=== PATIENT | male | born 1950 | race Caucasian/White ===

== ENCOUNTER 2017-07-07 07:40 | Emergency (ER) | payer BC ==
[2017-07-07 07:46] VITALS: BP 147/85
--- NOTE | 2017-07-07 08:15 | UC ---
Respiratory Complaint HPI - HPI Summary HPI Summary: 67yo WM c/o nasal congestion, and non-productive cough x 2 days - History of Current Complaint Chief Complaint: UCRespiratory Stated Complaint: URI Time Seen by Provider: 07/07/17 07:53 Hx Obtained From: Patient Onset/Duration: Gradual Onset Severity Initially: Mild Character: Cough: Nonproductive Associated Signs And Symptoms: Negative: Dyspnea, Fever, Chills, Wheezing - Allergies/Home Medications Allergies/Adverse Reactions: Allergies Allergy/AdvReac Type Severity Reaction Status Date / Time Erythromycin Allergy Intermediate Stomach Verified 07/07/17 07:48 Cramps Atorvastatin [From Lipitor] AdvReac Unknown Verified 07/07/17 07:48 Reaction Details Home Medications: Home Medications Dextromethorphan-Guaifenesin [Guaifenesin/Dextromethorp 20-400 mg] 1 tab PO Q6HR PRN 07/07/17 [History Confirmed 07/07/17] PMH/Surg Hx/FS Hx/Imm Hx - Surgical History Surgical History: Yes Surgery Procedure, Year, and Place: Bilateral Injunial Hernia repair; Right knee surgery - Social History Alcohol Use: Daily Alcohol Amount: 1-2 glass wine Substance Use Type: None Smoking Status (MU): Never Smoked Tobacco - Immunization History Most Recent Influenza Vaccination: 06/2017 Review of Systems Constitutional: Negative Skin: Negative Eyes: Negative ENT: Negative Respiratory: Cough, Other - lung feels congested Cardiovascular: Negative Gastrointestinal: Negative Genitourinary: Negative Motor: Negative Neurovascular: Negative Musculoskeletal: Negative Neurological: Negative Psychological: Negative All Other Systems Reviewed And Are Negative: Yes Physical Exam Triage Information Reviewed: Yes Vital Signs: Initial Vital Signs Temp 36.6 C 07/07/17 07:43 Pulse 76 07/07/17 07:43 Resp 16 07/07/17 07:43 BP 147/85 07/07/17 07:43 Pulse Ox 97 07/07/17 07:43 Eye Exam: Normal ENT Exam: Normal Dental Exam: Normal Neck exam: Normal Neck: Positive: 1 Respiratory Exam: Normal Respiratory: Positive: Lungs clear, No respiratory distress. Negative: Crackles , Rhonchi, Stridor, Wheezing Cardiovascular Exam: Normal Abdominal Exam: Normal Musculoskeletal Exam: Normal Neurological Exam: Normal Psychological Exam: Normal Skin Exam: Normal UC Diagnostic Evaluation - Laboratory O2 Sat by Pulse Oximetry: 97 Respiratory Course/Dx - Course Course Of Treatment: Advised to hold off using albuterol inhaler as it has no real benefit in this pt without a dx of asthma, pt states he has h/o intermittent cough at certain times of the year, so advised evaluation with PFT' s by a pulmonlolgist to establish proper dx of asthma in the near future. - Differential Dx/Diagnosis Provider Diagnoses: URI Discharge - Discharge Plan Condition: Stable Disposition: HOME Prescriptions: Pseudoephedrine HCL ER TAB* [Sudafed 12 Hour*] 120 mg PO BID #10 tab.er Patient Education Materials: Upper Respiratory Infection (ED) Referrals: Leonard Vinson MD [Primary Care Provider] - Additional Instructions: as tolerated
== END 2017-07-07 08:19 | disposition home or self-care (01) ==
LOC: UCEAST 07:40
DX: J06.9 Acute upper respiratory infection, unspecified (principal); Z72.89 Other problems related to lifestyle
CPT/HCPCS: 99212; G0463